=== PATIENT | female | born 1970 | race Two or more races ===

== ENCOUNTER 2019-06-27 16:24 | Emergency (ER) | payer OTHER ==
[~2019-06-27] VITALS: Ht 157.5 cm; Wt 59.4 kg
--- NOTE | 2019-06-27 16:45 | NUR ---
c/o dry cough, chills, runny nose x 2 weeks s/p exposed to positive covid patient. DENIES PAIN, DENIES SOB. NO ACUTE DISTRESS NOTED. RR EVEN AND UNLABORED ON RA. MADE COMFORTABLE AND READY FOR EVAL.
--- NOTE | 2019-06-27 17:38 | NUR ---
COVID SWAB SENT TO LAB
--- NOTE | 2019-06-27 18:44 | NUR ---
Patient discharged to home in stable condition. Written and verbal after care instructions given. Patient verbalizes understanding of instruction.
[2019-06-27 19:10] VITALS: BP 104/67
== END 2019-06-27 18:45 | disposition home or self-care (01) ==
LOC: EDSEX 16:24 → ER 16:24
DX: J06.9 Acute upper respiratory infection, unspecified (principal)
CPT/HCPCS: 36415; 71045-TC